=== PATIENT | male | born 1970 | race Caucasian/White ===

== ENCOUNTER → 2017-03-26 | Outpatient (REF) ==
--- NOTE | 2017-03-26 12:56 | DI ---
Exam: Two x-rays of the chest. Comparison: 05/21/2016. Reason for exam: Annual screening. FINDINGS: No pneumothorax, pleural effusion, or focal consolidation. The cardiac silhouette is not enlarged. The imaged osseous structures appear grossly unchanged without acute fracture. Impression: No acute cardiopulmonary process.
== END ==
LOC: RAD 12:19
DX: Z02.89 Encounter for other administrative examinations (principal)